=== PATIENT | female | born 1990 | race Caucasian/White ===

== ENCOUNTER → 2019-01-31 | Outpatient (CLI) | payer OTHER | LOC: M.MRI 06:58 | DX: M51.27 Other intervertebral disc displacement, lumbosacral region (principal); M54.16 Radiculopathy, lumbar region ==

== ENCOUNTER → 2019-09-21 | Outpatient (CLI) | payer OTHER ==
[~2019-09-21] MED LIST: FLEXERIL PO; MELOXICAM15 MG PO; [UNRECOGNIZED DRUG - OTHER] PO
== END ==
LOC: M.PC 08:59
DX: M47.816 Spondylosis without myelopathy or radiculopathy, lumbar region (principal); M51.16 Intervertebral disc disorders with radiculopathy, lumbar region; M79.652 Pain in left thigh; M79.651 Pain in right thigh